=== PATIENT | male | born 1970 | race Caucasian/White ===

== ENCOUNTER → 2021-03-16 | Day surgery (SDC) | payer BC ==
[~2021-03-16] MED LIST: FLOMAX0.4 MG PO; MULTIVITAMIN1 EACH PO; POVIDONE IODINE 0.05% 0.05 % ML PO ONE; PROPOFOL IV EMULSION 10 MG/ML 20 ML VIAL ONE
[2021-03-16 14:30] VITALS: BP 120/70
== END | disposition home or self-care (01) ==
LOC: OR 11:57
PROVIDERS: ATTEND Internal Medicine Gastroenterology
DX: Z12.11 Encounter for screening for malignant neoplasm of colon (principal); K63.5 Polyp of colon; K64.8 Other hemorrhoids; Z68.25 Body mass index [BMI] 25.0-25.9, adult; Z01.810 Encounter for preprocedural cardiovascular examination; Z01.812 Encounter for preprocedural laboratory examination; Z20.822 Contact with and (suspected) exposure to COVID-19
CPT/HCPCS: 45384; 45385; 93005; J2704; U0002; 45378